=== PATIENT | female | born 1965 | race Caucasian/White ===

== ENCOUNTER 2017-02-09 15:56 | Emergency (ER) | payer MEDICARE, MEDICAID ==
[~2017-02-09] VITALS: Ht 165.1 cm; Wt 85.0 kg
[2017-02-09] MEDS ORDERED: KETOROLAC 30 MG/1 ML ONE (16:17)
[2017-02-09] MEDS ORDERED: KETOROLAC 30 MG/1 ML IM ONE (16:30)
[2017-02-09] MEDS ORDERED: HYDROmorphone 1 MG/ML, 1ML ONE (18:49)
[2017-02-09] MEDS ORDERED: HYDROmorphone 1 MG/ML, 1ML IM ONE (19:00)
[2017-02-09] MEDS ORDERED: ONDANSETRON ODT 4 MG PO ONE (19:00)
[2017-02-09] MEDS ORDERED: ONDANSETRON ODT 4 MG ONE (19:06)
[2017-02-09 19:23] VITALS: BP 152/87
== END 2017-02-09 19:24 | disposition home or self-care (01) ==
LOC: ED 18:51
DX: S16.1XXA Strain of muscle, fascia and tendon at neck level, initial encounter (principal); M54.6 Pain in thoracic spine; R51 Headache; V49.9XXA Car occupant (driver) (passenger) injured in unspecified traffic accident, initial encounter; Y93.89 Activity, other specified; Y92.89 Other specified places as the place of occurrence of the external cause; Y99.9 Unspecified external cause status
CPT/HCPCS: 70450; 72072; 72125; 96372; 99284; J1170; J1885; Q0162

== ENCOUNTER 2019-06-05 14:01 | Outpatient (CLI) | payer MEDICAID, MEDICARE ==
[2019-06-05] MEDS ORDERED: FENTANYL PF 100 MCG/2ML ONE (15:01)
[2019-06-05] MEDS ORDERED: MIDAZOLAM 1 MG/ML, 5ML ONE (15:01)
== END 2019-06-05 23:59 | disposition home or self-care (01) ==
LOC: RAD 14:01
PROVIDERS: ATTEND Nurse Practitioner
DX: M54.14 Radiculopathy, thoracic region (principal)
CPT/HCPCS: 72146; 99156; 99157; J2250; J3010

== ENCOUNTER 2020-02-19 14:15 | Outpatient (CLI) | payer MEDICARE, MEDICAID ==
[2020-02-19] MEDS ORDERED: ASPI-496 PO (14:43)
[2020-02-19] MEDS ORDERED: OXYC10TA6 PO (14:43)
[2020-02-19] MEDS ORDERED: MELA10TA PO (14:43)
[2020-02-19] MEDS ORDERED: GABA600T7 PO (14:43)
[2020-02-19] MEDS ORDERED: TRAM50TA2 PO (14:43)
[2020-02-19] MEDS ORDERED: OXYB5TAB10 PO (14:43)
== END 2020-02-19 23:59 | disposition home or self-care (01) ==
LOC: STAR 14:15
PROVIDERS: ATTEND Obstetrics & Gynecology Female Pelvic Medicine and Reconstructive Surgery
DX: Z01.818 Encounter for other preprocedural examination (principal); Z11.59 Encounter for screening for other viral diseases; N39.3 Stress incontinence (female) (male); R10.2 Pelvic and perineal pain; N81.6 Rectocele; N81.10 Cystocele, unspecified
CPT/HCPCS: 36415; 87635

== ENCOUNTER 2020-02-26 13:30 | Day surgery (SDC) | payer MEDICARE, MEDICAID ==
[~2020-02-26] VITALS: Ht 165.1 cm; Wt 86.0 kg
[~2020-02-26 13:30] MED LIST: ASPI-496 PO; GABA600T7 PO; MELA10TA PO; OXYB5TAB10 PO; OXYC10TA6 PO; TRAM50TA2 PO
[2020-02-26] MEDS ORDERED: CHLORHEXIDINE 15 ML UDC MM STA (13:41)
[2020-02-26] MEDS ORDERED: LACTATED RINGERS 1,000 ML IV SCH (13:44)
[2020-02-26] MEDS ORDERED: ACETAMINOPHEN 500 MG TABLET PO ONE (14:00)
[2020-02-26] MEDS ORDERED: GABAPENTIN 300 MG CAPSULE PO ONE (14:00)
[2020-02-26 14:04] VITALS: BP 150/90
[2020-02-26] MEDS ORDERED: GENTAMICIN 80 MG/2 ML ONE (17:52)
[2020-02-26] MEDS ORDERED: BUPIVACAINE/PF-EPI 0.25% 1:200K ONE (17:52)
[2020-02-26] MEDS ORDERED: VANCOMYCIN 500 MG ONE (17:53)
[2020-02-26] MEDS ORDERED: FUROSEMIDE 100 MG/10 ML ONE (18:22)
[2020-02-26] MEDS ORDERED: FENTANYL PF 100 MCG/2ML ONE (18:28)
[2020-02-26] MEDS ORDERED: KETOROLAC 30 MG/1 ML ONE (18:30)
[2020-02-26] MEDS ORDERED: ONDANSETRON 2MG/ML, 2ML ONE (18:54)
[2020-02-26] MEDS ORDERED: DEXAMETHASONE 4 MG/ML, 1ML ONE (18:54)
[2020-02-26] MEDS ORDERED: CEFAZOLIN 1,000 MG ONE (18:54)
[2020-02-26] MEDS ORDERED: PROPOFOL 10 MG/ML, 20ML ONE (18:54)
[2020-02-26] MEDS ORDERED: HALOPERIDOL 5 MG/ML IV PRN (19:00)
[2020-02-26] MEDS ORDERED: hydrALAzine 20 MG/ML, 1ML IV PRN (19:00)
[2020-02-26] MEDS ORDERED: DIPHENHYDRAMINE 50 MG/ML, 1ML IVPush PRN (19:00)
[2020-02-26] MEDS ORDERED: HYDROmorphone 1 MG/ML, 1ML INJ IVPush PRN (19:00)
[2020-02-26] MEDS ORDERED: MEPERIDINE/PF 25MG/0.5ML IVPush PRN (19:00)
[2020-02-26] MEDS ORDERED: FENTANYL PF 100 MCG/2ML IV PRN (19:00)
[2020-02-26] MEDS ORDERED: LABETALOL 5MG/ML, 20ML IV PRN (19:00)
[2020-02-26] MEDS ORDERED: OXYcodone 5 MG/5 ML ORAL.SOL UDC PO PRN (19:00)
[2020-02-26] MEDS ORDERED: PROMETHAZINE 25 MG/ML, 1ML IVPush PRN (19:00)
[2020-02-26] MEDS ORDERED: OXYcodone 5 MG/5 ML ORAL.SOL UDC ONE (19:23)
[2020-02-26] MEDS ORDERED: HYDROcodone/APAP 5/325 TABLET PO PRN (21:30)
[2020-02-26] MEDS ORDERED: IBUPROFEN 600 MG TABLET PO PRN (21:30)
[2020-02-26] MEDS ORDERED: HYDROmorphone 2 MG/ML, 1ML IVPush PRN (21:30)
[2020-02-26] MEDS ORDERED: KETOROLAC 30 MG/1 ML IV PRN (21:30)
[2020-02-26] MEDS ORDERED: ONDANSETRON 2MG/ML, 2ML IV PRN (21:30)
[2020-02-26] MEDS ORDERED: OXYcodone/APAP 5/325MG TABLET PO PRN (21:30)
== END 2020-02-26 22:15 | disposition home or self-care (01) ==
LOC: OR 13:30 → 5SO 19:55 → OR 22:15
PROVIDERS: ATTEND Obstetrics & Gynecology Female Pelvic Medicine and Reconstructive Surgery
DX: R10.2 Pelvic and perineal pain (principal); N39.46 Mixed incontinence; N81.89 Other female genital prolapse; N81.11 Cystocele, midline; N81.6 Rectocele; N81.5 Vaginal enterocele; K21.9 Gastro-esophageal reflux disease without esophagitis; G62.9 Polyneuropathy, unspecified; J44.9 Chronic obstructive pulmonary disease, unspecified; M19.90 Unspecified osteoarthritis, unspecified site; F12.20 Cannabis dependence, uncomplicated; F17.210 Nicotine dependence, cigarettes, uncomplicated; Z79.82 Long term (current) use of aspirin; Z79.891 Long term (current) use of opiate analgesic; Z79.899 Other long term (current) drug therapy; Z90.710 Acquired absence of both cervix and uterus; Z90.49 Acquired absence of other specified parts of digestive tract; Z98.890 Other specified postprocedural states
CPT/HCPCS: 57265; 57282; 57288; C1771; J0690; J1100; J1580; J1885; J1940; J2405; J2704; J3010; J3370; J7120; G0378

== ENCOUNTER 2020-05-14 06:44 | Outpatient (CLI) | payer MEDICARE, MEDICAID ==
[2020-05-14] MEDS ORDERED: FENTANYL PF 100 MCG/2ML ONE (07:32)
[2020-05-14] MEDS ORDERED: MIDAZOLAM 1 MG/ML, 5ML ONE (07:32)
== END 2020-05-14 23:59 | disposition home or self-care (01) ==
LOC: RAD 06:44
PROVIDERS: ATTEND Nurse Practitioner
DX: M47.816 Spondylosis without myelopathy or radiculopathy, lumbar region (principal); M48.07 Spinal stenosis, lumbosacral region; G89.4 Chronic pain syndrome; F12.90 Cannabis use, unspecified, uncomplicated; Z79.82 Long term (current) use of aspirin; Z79.899 Other long term (current) drug therapy; Z98.890 Other specified postprocedural states; Z72.89 Other problems related to lifestyle; Z87.891 Personal history of nicotine dependence; Z79.1 Long term (current) use of non-steroidal anti-inflammatories (NSAID); Z82.49 Family history of ischemic heart disease and other diseases of the circulatory system
CPT/HCPCS: 72148; 99156; 99157; J2250; J3010